=== PATIENT | male | born 1935 | race Caucasian/White ===

== ENCOUNTER → 2018-01-11 | Outpatient (CLI) | payer BC ==
--- NOTE | 2018-01-11 13:08 | RAD ---
Lumbar spine, 3 lateral views, 01/11/2018: HISTORY: Spondylolisthesis Upright lateral views of the lumbar spine were obtained in flexion and extension. A supine lateral view was also obtained. There is disc space narrowing throughout the lumbar spine with moderate scattered marginal spurs. There is moderate facet joint arthropathy at multiple levels. No fracture is identified. There is slight anterolisthesis at L4-5 which does not change significantly on flexion and extension. There is slight retrolisthesis at L2-3 which also shows no definite instability. Aortic calcific plaquing is present. IMPRESSION: Moderately severe multilevel degenerative change as described above. Electronically signed by: Kyle Plummer MD (01/11/2018 1:05 PM) [facility]
== END | disposition home or self-care (01) ==
LOC: RAD 11:15
PROVIDERS: ATTEND Neurological Surgery
DX: M47.896 Other spondylosis, lumbar region (principal); M48.061 Spinal stenosis, lumbar region without neurogenic claudication; I70.0 Atherosclerosis of aorta
CPT/HCPCS: 72100